=== PATIENT | female | born 1955 | race Caucasian/White ===

== ENCOUNTER 2021-06-12 10:03 | Outpatient (CLI) | payer BC ==
[2021-06-12 17:29] LABS: SARS-CoV-2 PCR by NAA Not Detected (NotDetected)
== END 2021-06-12 10:04 | disposition home or self-care (01) ==
LOC: CSHLAB 10:03
PROVIDERS: ATTEND Internal Medicine Gastroenterology
DX: Z01.812 Encounter for preprocedural laboratory examination (principal); Z20.822 Contact with and (suspected) exposure to COVID-19; Z12.11 Encounter for screening for malignant neoplasm of colon
CPT/HCPCS: U0003; U0005

== ENCOUNTER 2021-06-17 09:11 | Day surgery (SDC) | payer BC ==
[2021-06-13 13:04] VITALS: BMI 19.5
[2021-06-17] MEDS ORDERED: Lidocaine 1% MPF 2 ML VIAL ONE (09:39)
[2021-06-17] MEDS ORDERED: PROPOFOL 40 ML ONE (11:34)
[2021-06-17] MEDS ORDERED: Lidocaine 1% PF 5 ML VIAL ONE (11:35)
== END 2021-06-17 12:54 | disposition home or self-care (01) ==
LOC: CSHSDC 09:11
PROVIDERS: ATTEND Internal Medicine Gastroenterology
PROC: 0DBN8ZZ Excision of Sigmoid Colon, Via Natural or Artificial Opening Endoscopic (ICD-10-PCS; principal; 2021-06-17)
DX: Z12.11 Encounter for screening for malignant neoplasm of colon (principal); K63.5 Polyp of colon; Q43.8 Other specified congenital malformations of intestine; K64.9 Unspecified hemorrhoids; Z80.0 Family history of malignant neoplasm of digestive organs; F32.9 Major depressive disorder, single episode, unspecified; E78.5 Hyperlipidemia, unspecified; F17.210 Nicotine dependence, cigarettes, uncomplicated; J45.909 Unspecified asthma, uncomplicated
CPT/HCPCS: 88305; J2704